=== PATIENT | female | born 1980 ===

== ENCOUNTER 2018-04-16 14:04 | Emergency (ER) | payer OTHER ==
[2018-04-16 14:14] VITALS: BP 120/80; PULSE 80; RESP 18; TEMP 98.2; O2SAT 98
[2018-04-16] MEDS ORDERED: Tdap Vaccine 0.5 ml Vial (10-64 yrs) IM ONE (15:15)
[2018-04-16] MEDS ORDERED: Lidocaine 2% Inj (20ml) INFIL ONE (15:15)
--- NOTE | 2018-04-16 15:41 | ED PDOC ---
HPI: General Adult Time Seen by Provider: 04/16/18 15:15 Chief Complaint (Nursing): Abnormal Skin Integrity Chief Complaint (Provider): RIGHT HAND LACERATION History Per: Patient (37 Y/O FEMALE HERE WITH RIGHT HAND INJURY THAT OCCURED TODAY WHILE CUTTING CHICKEN. IS OTHERWISE LEFT HAND DOMINANT. UNSURE OF LAST TETANUS VACCINATION.) Past Medical History Reviewed: Historical Data, Nursing Documentation, Vital Signs Vital Signs: Last Vital Signs Temp 98.2 F 04/16/18 14:11 Pulse 80 04/16/18 14:11 Resp 18 04/16/18 14:11 BP 120/80 04/16/18 14:11 Pulse Ox 98 04/16/18 14:11 - Surgical History Surgical History: - Family History Family History: States: Unknown Family Hx - Immunization History Hx Tetanus Toxoid Vaccination: No Hx Influenza Vaccination: No Hx Pneumococcal Vaccination: No - Home Medications Home Medications: Ambulatory Orders Medication Instructions Recorded Acetaminophen [Tylenol] 325 mg PO Q6 PRN #30 tab 01/27/18 Naproxen [Naprosyn] 500 mg PO BID #20 tab 01/27/18 Cephalexin [cephalexin] 500 mg PO BID #14 cap 03/18/18 Ibuprofen [Motrin] 600 mg PO Q6 #30 tab 03/18/18 Sulfamethoxazole/Trimethoprim 1 tab PO BID #14 tab 03/18/18 [Bactrim DS 800 mg-160 mg] traMADol [Ultram] 50 mg PO Q8 PRN #15 tab 03/19/18 - Allergies Allergies/Adverse Reactions: Allergies Allergy/AdvReac Type Severity Reaction Status Date / Time No Known Allergies Allergy Verified 03/19/18 13:54 Review of Systems ROS Statement: Except As Marked, All Systems Reviewed And Found Negative Musculoskeletal: Positive for: Other (FINGER LACERATION) Physical Exam - Reviewed Nursing Documentation Reviewed: Yes Vital Signs Reviewed: Yes - Physical Exam Appears: Positive for: Well, Non-toxic, No Acute Distress Head Exam: Positive for: ATRAUMATIC, NORMAL INSPECTION, NORMOCEPHALIC Skin: Positive for: Normal Color, Warm, DRY Eye Exam: Positive for: EOMI, Normal appearance, PERRL ENT: Positive for: Normal ENT Inspection Neck: Positive for: Normal, Painless ROM Cardiovascular/Chest: Positive for: Regular Rate, Rhythm Respiratory: Positive for: CNT, Normal Breath Sounds Gastrointestinal/Abdominal: Positive for: Normal Exam, Soft Back: Positive for: Normal Inspection Extremity: Positive for: Normal ROM, Other (2.5 CM FLAP LACERATION OF DISTAL PHALANX LATERALA ASPECT OF DIGIT. ABLE TO FLEX AND EXTEND WITHOUT DIFFICULTY.) Neurologic/Psych: Positive for: Alert, Oriented - ECG O2 Sat by Pulse Oximetry: 98 - Progress ED Course And Treament: TDAP 0.5ML IM X 1 DOSE Disposition - Clinical Impression Clinical Impression: Finger laceration - Patient ED Disposition Is Patient to be Admitted: No - Disposition Disposition: Routine/Home Disposition Time: 15:44 Condition: FAIR Additional Instructions: BARBARA PAULINO LUIS CON [facility] PARA QUITAR PUNTOS EN 8 A 10 SHAH. Instructions: Laceration Repair Forms: [facility] ED School/Work Excuse Print Language: RWANDAN Procedure: Wound Repair - Time Performed Time Performed: 15:42 - Time Out Time Out: Site verified - Consent Obtained Consent obtained: Verbal - Performed by Performed by: Mid-level Provider - Indications Indication(s):: Laceration - Location Location:: Right, Hand Finger:: Right, Index Shape:: Curvilinear Dimensions Length cm: 2.5CM FLAP LACERATIONS Depth:: Epidermis - Anesthetic Technique Anesthetic Technique: Regional block Local/Regional Anesthetic:: Lidocaine 2% - Debris Debris:: None - Irrigated Irrigated with ml of normal saline: 150ML STERILE WATER - Complexity Complexity:: Simple (one layer) - Wound repair method Sutures:: # (thirteen 5-0 NYLON SUTURES INTERRUPTED) - Muscle repiar layer closed with Muscle repair layer closed with:: Abx ointment applied, Tetanus ordered - Patient tolerated procedure Patient Tolerated Procedure:: Well
== END 2018-04-16 16:54 | disposition home or self-care (01) ==
LOC: H.ER 14:04
DX: S61.411A Laceration without foreign body of right hand, initial encounter (principal); W26.0XXA Contact with knife, initial encounter; Y92.89 Other specified places as the place of occurrence of the external cause

== ENCOUNTER 2018-06-08 18:32 | Emergency (ER) | payer OTHER ==
[2018-06-08 18:36] VITALS: RESP 18; TEMP 97.6; O2SAT 99
--- NOTE | 2018-06-08 21:22 | ED PDOC ---
Lower Extremity Pain/Injury Time Seen by Provider: 06/08/18 18:38 Chief Complaint (Nursing): Lower Extremity Problem/Injury Chief Complaint (Provider): Lower Extremity Problem/Injury History Per: Patient History/Exam Limitations: no limitations Onset/Duration Of Symptoms: Days Current Symptoms Are (Timing): Still Present Additional Complaint(s): 37 y/o female with no significant PMHx presents to the ED for evaluation of right ankle pain s/p slip and fall prior to arrival. Patient states she was walking down the street when she accidentally slipped on snow and fell thus twisting her ankle. Patient called EMS and was brought directly here for further evaluation. At this time, patient admits to numbness in the right foot. Patient is unable to bear weight on the right foot. PMD: none provided Past Medical History Reviewed: Historical Data, Nursing Documentation, Vital Signs Vital Signs: Last Vital Signs Temp 97.6 F 06/08/18 18:34 Pulse 88 06/08/18 18:34 Resp 18 06/08/18 18:34 BP 130/76 06/08/18 18:34 Pulse Ox 99 06/08/18 18:34 - Medical History PMH: No Chronic Diseases - Surgical History Surgical History: - Family History Family History: States: Unknown Family Hx - Immunization History Hx Tetanus Toxoid Vaccination: No Hx Influenza Vaccination: No Hx Pneumococcal Vaccination: No - Home Medications Home Medications: Ambulatory Orders Medication Instructions Recorded Acetaminophen [Tylenol] 325 mg PO Q6 PRN #30 tab 01/27/18 Naproxen [Naprosyn] 500 mg PO BID #20 tab 01/27/18 Cephalexin [cephalexin] 500 mg PO BID #14 cap 03/18/18 Ibuprofen [Motrin] 600 mg PO Q6 #30 tab 03/18/18 Sulfamethoxazole/Trimethoprim 1 tab PO BID #14 tab 03/18/18 [Bactrim DS 800 mg-160 mg] traMADol [Ultram] 50 mg PO Q8 PRN #15 tab 03/19/18 Ibuprofen [Motrin Tab] 800 mg PO Q6 PRN 7 Days tab 06/08/18 - Allergies Allergies/Adverse Reactions: Allergies Allergy/AdvReac Type Severity Reaction Status Date / Time No Known Allergies Allergy Verified 03/19/18 13:54 Review of Systems ROS Statement: Except As Marked, All Systems Reviewed And Found Negative Musculoskeletal: Positive for: Foot Pain (right ankle pain) Physical Exam - Reviewed Nursing Documentation Reviewed: Yes Vital Signs Reviewed: Yes - Physical Exam Appears: Positive for: Uncomfortable Pulses-Dorsalis Pedis (R): 2+ Extremity: Positive for: Tenderness (Point tenderness on the lateral aspect of the right ankle superior to the malleolous. No tenderness on palpation of Right knee. ), Capillary Refill (< 3sec), Swelling (Mild ecchymosis and swelling to the right ankle). Negative for: Normal ROM (decreased ROM with flexion and extension of Right ankle. Normal ROM with flexion/extension of Right knee. ) Neurologic/Psych: Positive for: Alert, Oriented - ECG O2 Sat by Pulse Oximetry: 99 (RA) Pulse Ox Interpretation: Normal Medical Decision Making Medical Decision Making: Time: 1954 Impression: Right Ankle Injury Plan: -- ED Urine -- Motrin 600 mg PO -- Ankle Right 3 Views XR Time: 2109 -- Right Ankle XR reviewed by me and demonstrate no fracture or dislocation. -- Patient will be given right ankle air cast and crutches with crutch training. Stable for d/c home. Scribe Attestation: Documented by Shree Ivory, acting as a scribe Maile Noble PA-C. Provider Scribe Attestation: All medical record entries made by the Scribe were at my direction and personally dictated by me. I have reviewed the chart and agree that the record accurately reflects my personal performance of the history, physical exam, medical decision making, and the department course for this patient. I have also personally directed, reviewed, and agree with the discharge instructions and disposition. Disposition - Clinical Impression Clinical Impression: Right ankle sprain - Patient ED Disposition Is Patient to be Admitted: No Counseled Patient/Family Regarding: Studies Performed, Diagnosis, Need For Followup, Rx Given - Disposition Referrals: Podiatry Clinic [Outside] Disposition: Routine/Home Disposition Time: 21:10 Condition: STABLE Additional Instructions: Take Ibuprofen for the pain and use Air cast for comfort. Follow up with charging machine operator if pain persists. Prescriptions: Ibuprofen [Motrin Tab] 800 mg PO Q6 PRN 7 Days tab PRN Reason: Pain, Moderate (4-7) Instructions: Ankle Sprain (DC) Forms: [employer] (H[place]er) Print Language: [place]
[2018-06-08 21:29] VITALS: BP 125/82; PULSE 77
--- NOTE | 2018-06-09 09:19 | RAD ---
Date of service: 06/08/2018 PROCEDURE: Right Ankle Radiographs. HISTORY: s/p fall onto Right ankle, pain at lateral R ankle COMPARISON: None available. FINDINGS: BONES: Acute fractures identified. At the lateral margins of the distal diametaphysis of the right tibia is an ill-defined endosteal lesion without periosteal reaction related. It appears to create a convex lateral deformity of the distal right diametaphysis cortex. This is an indeterminate lesion. Follow-up bone scan of the bilateral ankles is advised followed by SPECT for added characterization of this finding. JOINTS: Normal. No osteoarthritis. Ankle mortise maintained. Talar dome intact SOFT TISSUES: Normal. OTHER FINDINGS: None. IMPRESSION: No acute fracture, subluxation or dislocation right ankle. Poorly defined endosteal bone lesion of mixed density at the distal right diametaphysis laterally without periosteal reaction although small change in the bone contour is appreciated appearing convex lateral. Follow-up bone scan of the bilateral ankles advised followed by SPECT for additional characterization.
== END 2018-06-08 21:27 | disposition home or self-care (01) ==
LOC: H.ER 18:32
DX: S93.401A Sprain of unspecified ligament of right ankle, initial encounter (principal); W19.XXXA Unspecified fall, initial encounter; Y92.410 Unspecified street and highway as the place of occurrence of the external cause